=== PATIENT | male | born 1970 | race Caucasian/White ===

== ENCOUNTER 2017-02-25 17:41 | Emergency (ER) | payer MEDICARE, MEDICAID ==
[~2017-02-25] VITALS: Ht 175.3 cm; Wt 65.8 kg
[~2017-02-25 17:41] MED LIST: LORA0.5T PO
--- OUTSIDE RECORDS SUMMARY | 2017-02-25 17:47 | XMS REPORT ---
Author MELISSA Pa [employer] Address Unknown Phone Unavailable Care Team Providers Care Patternmaker Bench Name Role Phone MELISSA ABBASI CP Unavailable Allergies, Adverse Reactions, Alerts Substance Reaction Event Type N.K.D.A. Info Not Available Non Drug Allergy Problems Problem Type Condition Code Onset Dates Condition Status Problem Insomnia, unspecified type G47.00 Active Problem Tobacco abuse Z72.0 Active Problem History of pancreatitis Z87.19 Active Problem History of pacemaker Z95.0 Active Problem Alcoholism F10.20 Active Problem Chronic congestive heart failure, unspecified congestive heart failure type I50.9 Active Problem Lumbago with sciatica, right side M54.41 Active Problem Other chronic pain G89.29 Active Problem Hyperlipidemia, unspecified hyperlipidemia type E78.5 Active Problem Anxiety associated with depression F41.8 Active Assessment Speech disturbance, unspecified type R47.9 Active Assessment Choking, subsequent encounter T17.308D Active Assessment Insomnia, unspecified type G47.00 Active Problem Gastroesophageal reflux disease without esophagitis K21.9 Active Assessment Other chronic pain G89.29 Active Problem Chronic bronchitis, unspecified chronic bronchitis type J42 Active Medications Medication Code System Code Instructions Start Date End Date Status Dosage Furosemide [facility] [address]-65 20 MG Orally May 02, 2013 take 1 tablet (40 mg) by oral route once daily Coreg [facility] [address]-01 6.25 mg 2 times a day May 02, 2013 take 1 tablet (6.25 mg) by oral route 2 times per day with food Creon [facility] [address]-99 76986 UNIT Orally not defined nortriptyline [facility] 0 50 mg Once a day May 02, 2013 once daily Aspirin [facility] [address]-25 81 mg May 02, 2013 chew 1 tablet (81 mg ) by oral route once daily Gabapentin [facility] [address]-07 300 MG Orally start with 1 tablet at bedtime x3 days, then 1 tab am and pm x 3 days then three times a day Dec 26, [address] [facility] [address]-05 20 mg Orally twice a day 1 tablet Atorvastatin Calcium [facility] [address]-30 20 mg Orally Once a day 1 tablet Ventolin HFA [facility] [address]-20 108 (90 Base) MCG/ACT Inhalation every 4 hrs 2 puffs as needed Vitamin D-[address] [facility] [address] 1000 UNIT Orally Once a day [address] N[address] [facility] [address]-11 0.4 mg May 02, 2013 place 1 tablet (0.4 mg) by buccal route at the first sign of an attack; no more than 3 tabs are recommended within a 15 minute period. PRN Symbicort [facility] [address]-07 160-4.5 MCG/ACT Inhalation Twice a day [address] puffs Wellbutrin XL [facility] [address]-78 150 mg 2 times a day May 02, 2013 take 1 tablet (150 mg) by oral route once daily Folic Acid [facility] [address]-82 1 MG Orally Once a day [address] [facility] [address]-02 5 mg May 02, 2013 take 1 tablet (5 mg ) by oral route once daily Lexapro [facility] [address]-22 20 MG Orally Once a day 0.5 tablet Procedures Procedure Coding System Code Date Office Visit, Est Pt., Level 3 CPT-4 04017 Jan 21, 2016 [facility] VISIT ESTABLISHED PATIENT CPT-4 G0467 Jan 21, 2016 Vital Signs Date/Time: Jan 21, 2016 Cardiac Monitoring Heart Rate 74 bpm Weight 131 lbs Height 67.5 in BMI 20.21 Index Blood Pressure Diastolic 70 mmHg Blood Pressure Systolic 98 mmHg Results No Known Results Summary Purpose eClinicalWorks Submission
--- OUTSIDE RECORDS SUMMARY | 2017-02-25 17:47 | XMS REPORT | Continuity of Care Document ---
Author Author [facility] Address Unknown Phone Unavailable Allergies Active Description Code Type Severity Reaction Onset Reported/Identified Relationship to Patient Clinical Status Yes No Known Drug Allergies [id number] Drug Allergy Unknown N/ A 07/13/2015 Medications Problems Date Dx Coded Attending Type Code Diagnosis Diagnosed By 05/02/2013 DAWNA DUNCAN DO 112.0 CANDIDIASIS ORAL THRUSH 05/02/2013 DAWNA DUNCAN DO 462 PHARYNGITIS 07/13/2015 Ot F13.220 SEDATV/HYP/ANXIOLYTC DEPENDENCE W INTOXI 07/13/2015 Ot M54.5 LOW BACK PAIN 07/24/2015 Ot F13.220 07/24/2015 Ot M54.5 Procedures Code Description [place] [address] STREP A (IN-HOUSE) 05/02/2013 40950 INFLUENZA A & B (IN-HOUSE) 05/02/2013 Results Encounters ACCT No. Visit Date/Time Discharge Status Pt. Type Provider Facility Loc./Unit Complaint [id number] 05/02/2013 15:11:00 05/02/2013 23: 59:59 CLS Outpatient DAWNA DUNCAN DO [id number] 07/13/2015 18:00:00 Document Registration
--- OUTSIDE RECORDS SUMMARY | 2017-02-25 17:47 | XMS REPORT ---
Author Author LETI GRAHAM Organization [facility] Address Unknown Phone Unavailable Care Team Providers Care Accounts Payables Clerk Name Role Phone LETI GRAHAM Unavailable Unavailable PROBLEMS Type Condition ICD9-CM Code [id number] Code Onset Dates Condition Status SNOMED Code Problem Subclinical hypothyroidism E03.9 Active 48551863 Problem Anxiety with depression F41.8 Active 249345527 Problem Tetrahydrocannabinol (THC) use disorder, moderate, dependence F12.20 Active 21175873 Problem Anxiety associated with depression F41.8 Active 258932116 Problem History of pancreatitis Z87.19 Active 17860536363639 Problem Low vitamin D level E55.9 Active 37191829 Problem Insomnia, unspecified type G47.00 Active 179820171 Problem Chronic bronchitis, unspecified chronic bronchitis type J42 Active 13928591 Problem 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 777611404 Problem Falling episodes R29.6 Active 819754140 Problem Other specified hypothyroidism E03.8 Active 79332187 Problem Alcoholism in remission F10.21 Active 537587557 Problem Lumbago with sciatica, right side M54.41 Active 776239286 Problem Hyperlipidemia, unspecified hyperlipidemia type E78.5 Active 92694930 Problem Tobacco abuse Z72.0 Active 256300974 Problem Other chronic pain G89.29 Active 22631151 Problem Chronic congestive heart failure, unspecified congestive heart failure type I50.9 Active 00159821 Problem Other insomnia G47.09 Active 708478805 Problem Alcoholism F10.20 Active 3930455 Problem Other chronic pain G89.29 Active 32743469 Problem Gastroesophageal reflux disease without esophagitis K21.9 Active 678800964 Problem History of pacemaker Z95.0 Active 681187735 Problem Alcohol abuse F10.10 Active 26446285 ALLERGIES Unknown Allergies SOCIAL HISTORY No smoking Hx information available PLAN OF CARE VITAL SIGNS MEDICATIONS Unknown Medications RESULTS No Results PROCEDURES No Known procedures IMMUNIZATIONS No Known Immunizations
--- OUTSIDE RECORDS SUMMARY | 2017-02-25 17:47 | XMS REPORT ---
Author Author KALI JUAN Organization [employer] Address Unknown Phone Unavailable Care Team Providers Care Senior Planner Name Role Phone KALI JUAN CP Unavailable Allergies No Known Allergies Problems Problem Type Condition ICD-9 Code Onset Dates Condition Status Problem Acute pharyngitis 462 Active Assessment Dental examination V72.2 Active Problem Candidiasis of mouth 112.0 Active Medications No Known Medications Procedures Procedure Coding System Code Date EXTRAC ERUPTED TOOTH/EXPOSED ROOT CPT-4 D7140 Nov 15, 2014 EXTRAC ERUPTED TOOTH/EXPOSED ROOT CPT-4 D7140 Nov 15, 2014 EXTRAC ERUPTED TOOTH/EXPOSED ROOT CPT-4 D7140 Nov 15, 2014 EXTRAC ERUPTED TOOTH/EXPOSED ROOT CPT-4 D7140 Nov 15, 2014 EXTRAC ERUPTED TOOTH/EXPOSED ROOT CPT-4 D7140 Nov 15, 2014 EXTRAC ERUPTED TOOTH/EXPOSED ROOT CPT-4 D7140 Nov 15, 2014 EXTRAC ERUPTED TOOTH/EXPOSED ROOT CPT-4 D7140 Nov 15, 2014 Results No Known Results Summary Purpose eClinicalWorks Submission
--- OUTSIDE RECORDS SUMMARY | 2017-02-25 17:47 | XMS REPORT ---
Author Author KALI JUAN Organization [employer] Address Unknown Phone Unavailable Care Team Providers Care Cisco Consultant Name Role Phone KALI JUAN CP Unavailable Allergies No Known Allergies Problems Problem Type Condition ICD-9 Code Onset Dates Condition Status Problem Acute pharyngitis 462 Active Assessment Dental examination V72.2 Active Problem Candidiasis of mouth 112.0 Active Medications No Known Medications Procedures Procedure Coding System Code Date EXTRAC ERUPTED TOOTH/EXPOSED ROOT CPT-4 D7140 Nov 29, 2014 EXTRAC ERUPTED TOOTH/EXPOSED ROOT CPT-4 D7140 Nov 29, 2014 EXTRAC ERUPTED TOOTH/EXPOSED ROOT CPT-4 D7140 Nov 29, 2014 EXTRAC ERUPTED TOOTH/EXPOSED ROOT CPT-4 D7140 Nov 29, 2014 EXTRAC ERUPTED TOOTH/EXPOSED ROOT CPT-4 D7140 Nov 29, 2014 EXTRAC ERUPTED TOOTH/EXPOSED ROOT CPT-4 D7140 Nov 29, 2014 EXTRAC ERUPTED TOOTH/EXPOSED ROOT CPT-4 D7140 Nov 29, 2014 Results No Known Results Summary Purpose eClinicalWorks Submission
--- OUTSIDE RECORDS SUMMARY | 2017-02-25 17:47 | XMS REPORT ---
Author Author MELISSA ABBASI [facility] [employer] Address Unknown Phone Unavailable Care Team Providers Care Child Psychologist Name Role Phone MELISSA ABBASI CP Unavailable Allergies No Known Allergies Problems Problem Type Condition Code Onset Dates Condition Status Problem Insomnia, unspecified type G47.00 Active Problem Tobacco abuse Z72.0 Active Problem History of pancreatitis Z87.19 Active Problem Gastroesophageal reflux disease without esophagitis K21.9 Active Problem Chronic bronchitis, unspecified chronic bronchitis type J42 Active Problem History of pacemaker Z95.0 Active Problem Alcoholism F10.20 Active Problem Chronic congestive heart failure, unspecified congestive heart failure type I50.9 Active Problem Lumbago with sciatica, right side M54.41 Active Problem Other chronic pain G89.29 Active Problem Hyperlipidemia, unspecified hyperlipidemia type E78.5 Active Problem Anxiety associated with depression F41.8 Active Medications Medication Code System Code Instructions Start Date End Date Status Dosage Amitriptyline HCl [facility] [address]-90 50 mg Orally Once a day at bedtime Jan 23, 2016 1 tablet Results No Known Results Summary Purpose eClinicalWorks Submission
--- OUTSIDE RECORDS SUMMARY | 2017-02-25 17:47 | XMS REPORT ---
Author Author MELISSA ABBASI [facility] eClinicalWorks Address Unknown Phone Unavailable Care Team Providers Care News Clerk Name Role Phone MELISSA ABBASI CP Unavailable [...] Instructions Start Date End Date Status Dosage Protonix [facility] [address]-60 40 mg Orally Once a day Dec 27, 2015 1 tablet Results No Known Results Summary Purpose eClinicalWorks Submission
--- OUTSIDE RECORDS SUMMARY | 2017-02-25 17:47 | XMS REPORT ---
Author Author MELISSA ABBASI [facility] Address [address] [place] [address] Care Team Providers Care Shipfitter Apprentice Name Role Phone MELISSA ABBASI Unavailable PROBLEMS Type Condition ICD9-CM Code WFC47-HE Code Onset Dates Condition Status SNOMED Code Problem History of pancreatitis Z87.19 Active 52413811321025 Problem Other chronic pain G89.29 Active 21698706 Problem Tobacco abuse Z72.0 Active 349908096 Problem Chronic congestive heart failure, unspecified congestive heart failure type I50.9 Active 91212824 Problem History of pacemaker Z95.0 Active 872177265 Problem Anxiety associated with depression F41.8 Active 268920243 Problem Lumbago with sciatica, right side M54.41 Active 366057446 Problem Alcoholism F10.20 Active 4187470 Problem Hyperlipidemia, unspecified hyperlipidemia type E78.5 Active 25398059 Assessment Chronic congestive heart failure, unspecified congestive heart failure type I50.9 Dec, Active 90611049 Problem Gastroesophageal reflux disease without esophagitis K21.9 Active 377588463 Assessment Choking in adult R09.89 Dec, Active 374238260 Problem Chronic bronchitis, unspecified chronic bronchitis type J42 Active 79173254 Assessment Tobacco abuse counseling Z71.6 Dec, Active 497607839 Problem Insomnia, unspecified type G47.00 Active 030085133 ALLERGIES Substance Reaction Event Type Date Status N.K.D.A. Unknown Non Drug Allergy Dec, Unknown SOCIAL HISTORY No smoking Hx information available PLAN OF CARE VITAL SIGNS Height 67.5 in 2015-12-26 Weight 126 lbs 2015-12-26 Heart Rate 75 bpm 2015-12-26 Respiratory Rate 18 2015-12-26 BMI 19.44 kg/m2 2015-12-26 Blood pressure systolic 102 mmHg 2015-12-26 Blood pressure diastolic 70 mmHg 2015-12-26 MEDICATIONS Medication Instructions Dosage Frequency Start Date End Date Duration Status Aspirin 81 mg chew 1 tablet (81 mg) by oral route once daily Apr, Active Lexapro 20 MG Orally Once a day 0.5 tablet 24h Active Creon 79763 UNIT Active Atorvastatin Calcium 20 mg Orally Once a day 1 tablet 24h Active Ventolin HFA 108 (90 Base) MCG/ACT Inhalation every 4 hrs 2 puffs as needed 4h Active Gabapentin 300 MG Orally start with 1 tablet at bedtime x3 days, then 1 tab am and pm x 3 days then three times a day 1 capsule Dec, Active Protonix 40 mg Orally Once a day 1 tablet 24h Dec, Active Multivitamin Active Folic Acid 1 MG Orally Once a day 1 tablet 24h Active Wellbutrin XL 150 mg take 1 tablet (150 mg) by oral route once daily 12h Apr, Active Symbicort 160-4.5 MCG/ACT Inhalation Twice a day 2 puffs 12h Active Lisinopril 5 mg take 1 tablet (5 mg) by oral route once daily Apr, Active Vitamin D-3 1000 UNIT Orally Once a day 1 capsule 24h Active nortriptyline 50 mg once daily 24h Apr, Active Coreg 6.25 mg take 1 tablet (6.25 mg) by oral route 2 times per day with food 12h Apr, Active Nitroglycerin 0.[address] 1 tablet (0.4 mg) by buccal route at the first sign of an attack; no more than 3 tabs are recommended within a 15 minute period. PRN Apr, Active Furosemide 20 MG take 1 tablet (40 mg) by oral route once daily Apr Active Famotidine 20 mg Orally twice a day 1 tablet 12h Active RESULTS Name Result Date Reference Range THYROID ANALYZER 2015-12-26 TSH 2.110 0.450-4.500 CBC 2015-12-26 WBC 7.0 3.4-10.8 RBC 4.39 4.14-5.80 Hemoglobin 14.5 12.6-17.7 Hematocrit 41.9 37.5-51.0 MCV 95 79-97 MCH 33.0 26.6-33.0 MCHC 34.6 31.5-35.7 RDW 13.5 12.3-15.4 Platelets 233 150-379 Neutrophils 66 Lymphs 24 Monocytes 9 Eos 1 Basos 0 Neutrophils (Absolute) 4.7 1.4-7.0 Lymphs (Absolute) 1.7 0.7-3.1 Monocytes(Absolute) 0.6 0.1-0.9 Eos (Absolute) 0.1 0.0-0.4 Baso (Absolute) 0.0 0.0-0.2 Immature Granulocytes 0 Immature Grans (Abs) 0.0 0.0-0.1 CMP 2015-12-26 Glucose, Serum 91 65-99 BUN 10 6-24 Creatinine, Serum 1.00 0.76-1.27 eGFR If NonAfricn Am 91 >59 eGFR If Africn Am 105 >59 BUN/Creatinine Ratio 10 9-20 Sodium, Serum 140 134-144 Potassium, Serum 4.5 3.5-5.2 Chloride, Serum 99 97-108 Carbon Dioxide, Total 27 18-29 Calcium, Serum 8.9 8.7-10.2 Protein, Total, Serum 7.1 6.0-8.5 Albumin, Serum 4.1 3.5-5.5 Globulin, Total 3.0 1.5-4.5 A/G Ratio 1.4 1.1-2.5 Bilirubin, Total 0.3 0.0-1.2 Alkaline Phosphatase, S 112 39-117 AST (SGOT) 25 0-40 ALT (SGPT) 22 0-44 LIPID PANEL 2015-12-26 Cholesterol, Total 199 100-199 Triglycerides 304 0-149 HDL Cholesterol 62 >39 VLDL Cholesterol Matty 61 5-40 LDL Cholesterol Calc 76 0-99 PROCEDURES Procedure Date Ordered Related Diagnosis Body Site ROUTINE VENIPUNCTURE 2015-12-26 N/A COMPLETE CBC W/AUTO DIFF WBC Dec 26, 2015 [facility] VISIT ESTABLISHED PATIENT Dec 26, 2015 [facility] VISIT NEW PATIENT Dec 26, 2015 Office Visit, Est Pt., Level 4 Dec 26, 2015 LIPID PANEL Dec 26, 2015 COMPREHEN METABOLIC PANEL Dec 26, 2015 VENIPUNCT, ROUTINE* Dec 26, 2015 ASSAY THYROID STIM HORMONE Dec 26, 2015 IMMUNIZATIONS No Known Immunizations
--- NOTE | 2017-02-25 18:23 | ED General ---
General Chief Complaint: General Problems/Pain Stated Complaint: GROIN PAIN Nursing Triage Note: PT REPORTS R GROIN PAIN X 2 MONTHS. Nursing Sepsis Screen: No Definite Risk Source of Information: Patient Exam Limitations: No Limitations Allergies and Home Medications Allergies Coded Allergies: No Known Drug Allergies (Unverified , 07/13/15) Home Medications Lorazepam 0.5 Mg Tablet, 0.5 MG PO BID, #6 Prescribed by: ADRIANO TURCIOS on 07/13/15 2101 Tramadol HCl 50 Mg Tablet, 50 MG PO Q6H PRN for PAIN-MODERATE TO SEVERE, #20 Prescribed by: KOBI HOFFMAN on 02/25/17 1838 Past Gssojbz-Fmsewy-Bxtayl Hx Patient Social History Alcohol Use: Past History Recreational Drug Use: Yes Drug of Choice: MARIJUANA Smoking Status: Current Everyday Smoker Type Used: Cigarettes 2nd Hand Smoke Exposure: Yes Recent Foreign Travel: No Contact w/Someone Who Travel: No Recent Infectious Disease Expo: No Recent Hopitalizations: No Physical Abuse: No Sexual Abuse: No Seasonal Allergies Seasonal Allergies: No Surgeries History of Surgeries: Yes (HYPOSPADIA, EGD, STENTS) Respiratory History of Respiratory Disorde: No Cardiovascular History of Cardiac Disorders: Yes (CHF) Neurological History of Neurological Disord: Yes Neurological Disorders: Seizure Disorder Gastrointestinal History of Gastrointestinal Di: No Musculoskeletal History of Musculoskeletal Dis: Yes Musculoskeletal Disorders: Chronic Back Pain Endocrine History of Endocrine Disorders: No HEENT History of HEENT Disorders: No Cancer History of Cancer: No Psychosocial History of Psychiatric Problem: Yes Behavioral Health Disorders: Anxiety, Depression Suicide Risk Score: 0 Integumentary History of Skin or Integumenta: No Physical Exam Vital Signs Vital Sign - Last 12Hours 02/25/17 18:00 Temp 98.9 Pulse 72 Resp 18 B/P (MAP) 150/92 Pulse Ox 96 O2 Delivery Room Air Capillary Refill : Less Than 3 Seconds Progress/Results/Core Measures Suspected Sepsis Recent Fever Within 48 Hours: No Infection Criteria Present: None New/Unexplained Altered Menta: No Sepsis Screen: No Definite Risk Sepsis Diagnosis: SIRS Temperature:98.9 Pulse: 72 Respiratory Rate: 18 Blood Pressure 150 /92 Mean: 111 Results/Orders Vital Signs/I&O Vital Sign - Last 12Hours 02/25/17 18:00 Temp 98.9 Pulse 72 Resp 18 B/P (MAP) 150/92 Pulse Ox 96 O2 Delivery Room Air Capillary Refill : Less Than 3 Seconds Blood Pressure Mean: 111 Departure Impression Impression: Primary Impression: Inguinal hernia Qualified Codes: K40.90 - Unilateral inguinal hernia, without obstruction or gangrene, not specified as recurrent Disposition: 01 HOME, SELF-CARE Condition: Stable Departure-Patient Inst. Decision time for Depature: 18:30 Referrals: NO,LOCAL PHYSICIAN (PCP/Family) Primary Care Physician Patient Instructions: Inguinal and Femoral (Groin) Hernias Add. Discharge Instructions: Contact your primary care provider tomorrow to seek referral to a surgeon for further evaluation of your hernia. Return to care if you have worsening symptoms including uncontrolled pain, nausea and vomiting, abdominal pain with inability to pass bowel movements or gas, or any other unusual symptoms. You may continue using naproxen for pain and add hydrocodone for pain not controlled by naproxen. All discharge instructions reviewed with patient and/or family. Voiced understanding. Scripts Hydrocodone/Acetaminophen (Hydrocodon -Acetaminophen 5-325) 1 Each Tablet 1 EACH PO Q6H Y for PAIN, #14 TAB Prov: KOBI PERALTA MD 02/25/17 Copy Copies To 1: JORDYN MANTILLA JOSHUA T MD Feb 25, 2017 18:23
[2017-02-25] MEDS ORDERED: TRAM-42 PO (18:38)
[2017-02-25] MEDS ORDERED: HYDR-3812 PO (18:44)
[2017-02-25 18:49] VITALS: BP 150/92
== END 2017-02-25 18:55 | disposition home or self-care (01) ==
LOC: EDUNIT# 17:41 → ER 17:44
DX: K40.90 Unilateral inguinal hernia, without obstruction or gangrene, not specified as recurrent (principal); I50.9 Heart failure, unspecified; G43.909 Migraine, unspecified, not intractable, without status migrainosus; F41.9 Anxiety disorder, unspecified; F32.9 Major depressive disorder, single episode, unspecified; F12.10 Cannabis abuse, uncomplicated; F17.210 Nicotine dependence, cigarettes, uncomplicated
CPT/HCPCS: 99281

== ENCOUNTER → 2017-03-18 | Outpatient (CLI) | payer MEDICARE, MEDICAID ==
[~2017-03-18] MED LIST changes: +HYDR-3812 PO; +TRAM-42 PO
--- NOTE | 2017-03-18 14:40 | Diagnostic Imaging Report ---
Indication: Right groin pain Focused ultrasonography is performed in the right inguinal region. There is no evidence of abnormal flow within right common femoral artery or common femoral vein. No focal fluid collection is identified. There are multiple reniform hypoechoic nodules with central echogenicity compatible with lymph nodes. The largest reaches 1.8 x 0.9 x 0.6 cm. Impression: Multiple right inguinal lymph nodes reaching 1.8 cm long axis. Otherwise, no acute abnormality is detected. Dictated by: Dictated on workstation # [id number]
== END ==
LOC: RAD 13:42
PROVIDERS: ATTEND Surgery
DX: R59.0 Localized enlarged lymph nodes (principal); R10.31 Right lower quadrant pain
CPT/HCPCS: 76881